=== PATIENT | male | born 1970 | race Caucasian/White ===

== ENCOUNTER 2020-10-23 06:45 | Outpatient (REF) | payer MEDICAID, OTHER, SELFPAY ==
[2020-10-23 07:17] LABS: MANUAL DIFF FLAG NO
[2020-10-23 07:27] LABS: Basophils Absolute Auto 0.1 X10*3/uL (0.0-0.2); Basophils Percent Auto 0.8 % (0-2); Eosinophils Absolute Auto 0.3 X10*3/uL (0.0-0.4); Eosinophils Percent Auto 3.6 % (0-4); Hematocrit 46.8 % (42-52); Hemoglobin 15.9 g/dl (14.0-18.0); Imm Gran Abs Auto 0.04 X10*3/uL (0.00-0.03); Imm Gran Pct Auto 0.5 % (0.0-0.4); Lymphocytes Absolute Auto 2.3 X10*3/uL (1.2-4.9); Lymphocytes Percent Auto 30.7 % (20-40); Mean Corpuscular Hemoglobin 29.7 pg (27.0-33.0); Mean Corpuscular Volume 87.3 fL (80-98); Mean Platelet Volume 12.1 fL (9.4-12.4); Monocytes Absolute Auto 0.8 X10*3/uL (0.1-1.2); Monocytes Percent Auto 10.2 % (2-11); Neutrophils Percent Auto 54.2 % (45-73); Platelet Count 201 X10*3/uL (160-400); Red Blood Count 5.36 X10*6/uL (4.60-5.80); White Blood Count 7.5 X10*3/uL (4.8-10.8)
[2020-10-23 07:53] LABS: Alanine Aminotransferase 31 U/L (0-40); Albumin Level 4.2 g/dL (3.5-5.0); Alkaline Phosphatase 72 U/L (39-117); Anion Gap 15 (12-20); Aspartate Amino Transferase 31 U/L (5-37); Bilirubin Total 0.5 mg/dL (0.0-1.0); Blood Urea Nitrogen 15 mg/dL (9-16); Calcium 9.3 mg/dL (8.4-10.2); Carbon Dioxide 24 mmol/L (22-29); Chloride 106 mmol/L (96-108); Estimated Glomerular Filt Rate > 60; Glucose Fasting 95 mg/dL (60-99); Potassium 4.7 mmol/L (3.3-5.1); Sodium 140 mmol/L (135-145); Total Protein 7.8 g/dL (6.5-8.0)
== END 2020-10-23 06:46 | disposition home or self-care (01) ==
LOC: HO.LAB 06:45
PROVIDERS: Absent Provider Nurse Practitioner Primary Care; PCP Nurse Practitioner Primary Care; Visit Provider Nurse Practitioner Family
DX: E55.9 Vitamin D deficiency, unspecified (principal); E78.00 Pure hypercholesterolemia, unspecified; Z71.89 Other specified counseling
CPT/HCPCS: 36415; 80053; 82306; 85025

== ENCOUNTER 2022-03-04 20:05 | Emergency (ER) | payer MEDICAID, OTHER, SELFPAY ==
[2022-03-04 20:13] VITALS: BP 175/103; PULSE 64; RESP 18; TEMP 37; O2SAT 98; BMI 28.2
[2022-03-04 21:09] VITALS: BP 128/91; PULSE 56; RESP 18; O2SAT 98
--- NOTE | 2022-03-04 21:36 | ED_ITS ---
HPI - Skin/Abscess/Foreign Bdy General Chief complaint: Skin/Abscess/Foreign Body Stated complaint: Rash Time Seen by Provider: 03/04/22 21:23 Source: patient Mode of arrival: ambulatory History of Present Illness HPI narrative: This is a 52-year-old male with history hypertension who states she began having what he describes as a rash that started around his bilateral lower extremities approximately 1 week ago and began after he had taken a shower but states that it is ?all over?, pruritic in nature and much worse after showering or just before going to sleep. He denies any associated fevers, chills, new soap/lotions/sheets/clothing/medications/foods/mattresses and denies any exposure to poison michel which he states he does not react to regardless. This rash involves every aspect of his body with the exception of palms and soles. Related Data Previous Rx's Medication Instructions Recorded prednisone 5 mg tablet 5 mg PO DAILY #4 tabs 03/04/22 Allergies Allergy/AdvReac Type Severity Reaction Status Date / Time No Known Allergies Allergy Unknown NOT Unverified 05/14/20 16:50 APPLICABLE Review of Systems Review of Systems: Pertinent positives and negatives as stated in HPI 10 point review of systems is otherwise negative. PMFSH Past Medical History Source: nursing notes reviewed Social History Social History Advance Directives: No Physical Exam Vital Signs: Vital Signs: Last Vital Signs Temp 98.6 F 03/04/22 20:13 Pulse 56 03/04/22 21:09 Resp 18 03/04/22 21:09 BP 128/91 H 03/04/22 21:09 Pulse Ox 98 03/04/22 21:09 O2 Del Method 03/04/22 21:09 BMI result Body Mass Index 28.2 VITAL SIGNS: Reviewed. GENERAL: Well developed, well nourished, in no acute distress. HEAD: Normocephalic/atraumatic EYES: PERRLA, EOMI EARS: Ext canals without abnormality, TMs non-bulging and non-erythematous NOSE: Nares patent bilateral OROPHARYNX: no oral lesions noted, posterior pharynx clear NECK: Supple, no adenopathy LUNGS: Normal breath sounds. No adventitious sounds or accessory muscle use. SpO2<98> CARDIOVASCULAR: Regular rate and rhythm without noted murmurs, no JVD or lower extremity edema. ABDOMEN: Soft, non-tender, non-distended with bowel sounds. MUSCULOSKELETAL: No tenderness, deformities, or effusions noted on gross inspection. EXTREMITIES: No cyanosis, clubbing or edema. SKIN: Inspection of the skin reveals papular, non erythematous skin changes with obvious stigmata of scratching to all extremities, trunk NEUROLOGIC: Alert and oriented x 4. Strength and sensation to light touch were grossly intact x 4. Course Course Course Narrative: 52-year-old male with history and clinical presentation concerning for possible liver versus hematologic etiology due to the association with showering for his presentation is this does not appear to be a typical urticaria, contact dermatit is, insect bites, and does not appear to be associated with any topical or medication related reaction. Will obtain initial antibiotics. Patient has attempted to use both Benadryl as well as topical cortisone without success. Review of all investigations does not demonstrate an elevated H/H, no evidence liver enzyme derangements, patient will be placed on a short course low-dose prednisone. All results discussed with him at bedside and he was strictly instructed to follow-up with his primary care provider by calling the office on Monday morning as he may need further workup. He was also advised the steroids can lead to elevated blood pressure. MDM - Skin/Abscess/Foreign Bdy Lab Data Result diagrams: 03/04/22 21:34 03/04/22 21:34 Labs: Lab Results 03/04/22 03/04/22 03/04/22 Range/Units 21:33 21:34 21:34 WBC 8.8 (4.8-10.8) X10*3/uL RBC 5.15 (4.60-5.80) X10*6/uL Hgb 15.1 (14.0-18.0) g/dl Hct 44.7 (42.0-52.0) % MCV 86.8 (80.0-98.0) fL MCH 29.3 (27.0-33.0) pg MCHC 33.8 (31.0-36.0) g/dl RDW 13.2 (11.0-16.0) % Plt Count 245 (160-400) X10*3/uL MPV 10.5 (9.4-12.4) fL Immature Gran % (Auto) 0.3 (0.0-0.4) % Neut % (Auto) 53.0 (45-73) % Lymph % (Auto) 31.8 (20-40) % [place] % (Auto) 12.0 H (2-11) % Eos % (Auto) 2.4 (0-4) % Baso % (Auto) 0.5 (0-2) % Lymph # (Auto) 2.8 (1.2-4.9) X10*3/uL [place] # (Auto) 1.1 (0.1-1.2) X10*3/uL Eos # (Auto) 0.2 (0.0-0.4) X10*3/uL Baso # (Auto) 0.0 (0.0-0.2) X10*3/uL Abs Immat Gran (auto) 0.03 (0.00-0.03) X10*3/uL Absolute Neuts (auto) 4.7 (2.0-8.3) x10*3/uL Absolute Nucleated RBC 0.000 (0.0-0.012) X10*3/uL Nucleated RBC % (auto) 0.0 (0.0-0.2) /100WBC Sodium 139 (135-145) mmol/L Potassium 4.3 (3.3-5.1) mmol/L Chloride 104 (96-108) mmol/L Carbon Dioxide 28 (22-29) mmol/L Anion Gap 11 L (12-20) BUN 14 (9-16) mg/dL Creatinine 1.01 (0.5-1.4) mg/dL Estim Creat Clear Calc 80.0 Estimated GFR > 60 Random Glucose 85 (60-115) mg/dL Calcium 9.3 (8.4-10.2) mg/dL Total Bilirubin 0.3 (0.0-1.0) mg/dL AST 26 (5-37) U/L ALT 30 (0-40) U/L Alkaline Phosphatase 74 (39-117) U/L Total Protein 7.5 (6.5-8.0) g/dL Albumin 4.3 (3.5-5.0) g/dL Urine Color YELLOW Urine Appearance CLEAR Urine pH 6.0 (5.0-8.0) Ur Specific [place] 1.010 (1.005-1.025) Urine Protein NEG (NEG-TRACE) MG/DL Urine Glucose (UA) NEG (NEG) MG/DL Urine Ketones NEG (NEG) MG/DL Urine Blood NEG (NEG) Urine Nitrite NEG (NEG) Ur Leukocyte Esterase NEG (NEG) Discharge Plan Discharge Clinical Impression: Pruritus, Generalized papular rash Patient Disposition: Home, Self-Care Instructions: Acute Rash (ED), Itchy Skin (ED) Additional Instructions: 1. Resume all home medications as prescribed. 2. Complete the course of medication that you have been prescribed in the emergency room. 3. Call your primary care provider on Monday morning as you will need re- evaluation and possibly further outpatient workup. Return to the ER for worsening symptoms. Prescriptions: New prednisone 5 mg tablet 5 mg PO DAILY Qty: 4 0RF Referrals: [facility] [Primary Care Provider] -
[2022-03-04 21:38] LABS: MANUAL DIFF FLAG NO
[2022-03-04 21:40] LABS: Basophils Percent Auto 0.5 % (0-2); Eosinophils Absolute Auto 0.2 X10*3/uL (0.0-0.4); Eosinophils Percent Auto 2.4 % (0-4); Hematocrit 44.7 % (42.0-52.0); Hemoglobin 15.1 g/dl (14.0-18.0); Imm Gran Abs Auto 0.03 X10*3/uL (0.00-0.03); Imm Gran Pct Auto 0.3 % (0.0-0.4); Lymphocytes Absolute Auto 2.8 X10*3/uL (1.2-4.9); Lymphocytes Percent Auto 31.8 % (20-40); Mean Corpuscular HGB Conc 33.8 g/dl (31.0-36.0); Mean Corpuscular Hemoglobin 29.3 pg (27.0-33.0); Mean Corpuscular Volume 86.8 fL (80.0-98.0); Mean Platelet Volume 10.5 fL (9.4-12.4); Monocytes Absolute Auto 1.1 X10*3/uL (0.1-1.2); Neutrophils Absolute Auto 4.7 x10*3/uL (2.0-8.3); Platelet Count 245 X10*3/uL (160-400); Red Blood Count 5.15 X10*6/uL (4.60-5.80); Red Cell Distribution Width 13.2 % (11.0-16.0); White Blood Count 8.8 X10*3/uL (4.8-10.8)
[2022-03-04 21:42] LABS: Appearance Urine CLEAR; Color Urine YELLOW; Glucose Urine UA NEG (NEG); Leukocyte Esterase Urine NEG (NEG); Nitrite Urine NEG (NEG); Urine Blood NEG (NEG); Urine Ketones NEG (NEG); Urine Protein NEG (NEG-TRACE)
[2022-03-04 22:07] LABS: Alanine Aminotransferase 30 U/L (0-40); Albumin Level 4.3 g/dL (3.5-5.0); Alkaline Phosphatase 74 U/L (39-117); Anion Gap 11 (12-20); Aspartate Amino Transferase 26 U/L (5-37); Bilirubin Total 0.3 mg/dL (0.0-1.0); Blood Urea Nitrogen 14 mg/dL (9-16); Calcium 9.3 mg/dL (8.4-10.2); Carbon Dioxide 28 mmol/L (22-29); Chloride 104 mmol/L (96-108); Estimated Glomerular Filt Rate > 60; Glucose Random 85 mg/dL (60-115); Potassium 4.3 mmol/L (3.3-5.1); Sodium 139 mmol/L (135-145); Total Protein 7.5 g/dL (6.5-8.0)
[2022-03-04] MEDS: predniSONE 10 MG TABLET PO (22:38)
== END 2022-03-04 22:41 | disposition home or self-care (01) ==
PROVIDERS: Emergency Provider Student in an Organized Health Care Education/Training Program
DX: L29.9 Pruritus, unspecified (principal); R21 Rash and other nonspecific skin eruption
CPT/HCPCS: 36415; 80053; 81003; 85025; 99283

== ENCOUNTER 2022-08-11 10:40 | Emergency (ER) | payer MEDICAID, OTHER, SELFPAY ==
--- NOTE | ~2022-08-11 | US_ITS ---
EXAMINATION: US ABDOMEN COMPLETE CLINICAL INFORMATION: Epigastric and upper abdominal pain radiating to back for 2 weeks. COMPARISON: CT abdomen and pelvis noncontrast 11/06/2015, CT abdomen and pelvis with contrast 08/27/2008 TECHNIQUE: Real-time imaging of the abdominal viscera. FINDINGS: PANCREAS: Normal in size and contour and echogenicity. No pancreatic ductal dilatation or retroperitoneal effusion. ABDOMINAL AORTA: The proximal, mid, and distal segments are normal in caliber. INFERIOR VENA CAVA: Visualized portions are normal. LIVER: Normal in size and smooth in contour. No intrahepatic biliary ductal dilatation. Parenchymal echogenicity is within normal. Color Doppler shows portal flow towards the liver. There is a simple cyst medial left lobe subcapsular measuring just under 1 cm. In addition, there is a homogeneous circumscribed geographic hyperechoic lesion anterior right lobe measuring 1.6 x 1.3 cm, likely hemangioma. Hemangioma also suggested on CT abdomen 2007, approximately 1 cm at that time. GALLBLADDER: Normal. The gallbladder is physiologically distended without evidence of stones, sludge, polyps, wall thickening or pericholecystic fluid. COMMON BILE DUCT: Normal in caliber measuring 0.4 cm in diameter. RIGHT KIDNEY: Normal. No hydronephrosis. No renal calculi or focal parenchymal lesions. The kidney measures 10.0 cm in maximum dimension. LEFT KIDNEY: Normal. No hydronephrosis. No renal calculi or focal parenchymal lesions. The kidney measures 10.9 cm in maximum dimension. SPLEEN: Normal. The spleen measures 8.3 cm in maximum dimension. FREE FLUID: None. US/US abdomen complete IMPRESSION: 1. No cholelithiasis or biliary ductal dilatation. Normal pancreas. 2. No hydronephrosis or visible calculi. 3. Probable hepatic hemangioma anterior right lobe, 1.6 cm.
--- NOTE | ~2022-08-11 | XR_ITS ---
EXAMINATION: XR CHEST CLINICAL INFORMATION: Chest pain COMPARISON: November 2017 TECHNIQUE: Frontal view of the chest was obtained. 1120 hours. FINDINGS: No significant abnormality is noted involving the heart, lungs, mediastinum, bony thorax or soft tissues. XR/XR chest 1V IMPRESSION: Unremarkable examination.
--- NOTE | 2022-08-11 10:54 | ECG_ITS ---
Test Reason : CHEST PAIN Blood Pressure : / mmHG Vent. Rate : 065 BPM Atrial Rate : 065 BPM P-R Int : 144 ms QRS Dur : 092 ms QT Int : 390 ms P-R-T Axes : 060 036 029 degrees QTc Int : 405 ms Normal sinus rhythm Normal ECG When compared with ECG of 11-AUG-2022 10:56, No significant change was found Referred By: Generic ED Physician Electronically Signed By:CECIL ROMO
--- NOTE | 2022-08-11 10:56 | ECG_ITS ---
Test Reason : chest pain Blood Pressure : / mmHG Vent. Rate : 068 BPM Atrial Rate : 068 BPM P-R Int : 152 ms QRS Dur : 092 ms QT Int : 380 ms P-R-T Axes : 073 036 027 degrees QTc Int : 404 ms Normal sinus rhythm with sinus arrhythmia Normal ECG When compared with ECG of 01-APR-2019 20:06, No significant change was found Referred By: Marilyn Alberts Electronically Signed By:CECIL ROMO
[2022-08-11 11:00] VITALS: BP 145/102; PULSE 69; RESP 17; TEMP 36.1; O2SAT 98; BMI 28.3
--- NOTE | 2022-08-11 11:36 | ED.GENADULT ---
HPI - General Adult General Chief complaint: General Medical <AMBROSE Wang - Last Filed: 08/11/22 12:01> Stated complaint: chest pain <AMBROSE Wang - Last Filed: 08/11/22 12:01> Time Seen by Provider: 08/11/22 11:51 <AMBROSE Wang - Last Filed: 08/11/22 12:01> Source: patient <Marilyn Alberts MD - Last Filed: 08/11/22 13:43> Mode of arrival: ambulatory <Marilyn Alberts MD - Last Filed: 08/11/22 13:43> History of Present Illness HPI narrative: 52-year-old male who states he is already on omeprazole presents with 2 weeks of worsening epigastric discomfort that he describes as sharp, improves with food consumption as well as ibuprofen but states that when he does eat he feels like he becomes very bloated he denies any associated fever, chills, nausea, vomiting, diarrhea. Patient also denies any chest pain/palpitations. <Marilyn Alberts MD - Last Filed: 08/11/22 13:43> Related Data Home medications: Previous Rx's Medication Instructions Recorded prednisone 5 mg tablet 5 mg PO DAILY #4 tabs 03/04/22 <AMBROSE Wang - Last Filed: 08/11/22 12:01> Allergies/adverse reactions: Allergies Allergy/AdvReac Type Severity Reaction Status Date / Time No Known Allergies Allergy Unknown NOT Unverified 05/14/20 16:50 APPLICABLE <AMBROSE Wang - Last Filed: 08/11/22 12:01> Review of Systems Review of Systems: Pertinent positives and negatives as stated in HPI 10 point review of systems is otherwise negative. <Marilyn Alberts MD - Last Filed: 08/11/22 13:43> PMFSH Past Medical History Source: nursing notes reviewed <Marilyn Alberts MD - Last Filed: 08/11/22 13:43> Social History Social History: Social History Advance Directives: Yes Advance Directives Information Provided: Yes Advance Directives on File: No <AMBROSE Wang - Last Filed: 08/11/22 12:01> Physical Exam ED Vital Signs: Vital Signs - 24 hr 08/11/22 11:00 Temperature 97.0 F Pulse Rate 69 Respiratory Rate 17 Blood Pressure 145/102 H Pulse Oximetry 98 Oxygen Delivery Method Room Air BMI result Body Mass Index 28.3 <AMBROSE Wang - Last Filed: 08/11/22 12:01> Vital Signs - 24 hr 08/11/22 11:00 Temperature 97.0 F Pulse Rate 69 Respiratory Rate 17 Blood Pressure 145/102 H Pulse Oximetry 98 Oxygen Delivery Method Room Air BMI result Body Mass Index 28.3 VITAL SIGNS: Reviewed. GENERAL: Well developed, well nourished, in no acute distress. HEAD: Normocephalic/atraumatic EYES: PERRLA, EOMI EARS: Ext canals without abnormality, TMs non-bulging and non-erythematous NOSE: Nares patent bilateral OROPHARYNX: no oral lesions noted, posterior pharynx clear and non-erythematous without noted tonsillar enlargement/erythema/exudates NECK: Supple, no adenopathy LUNGS: Normal breath sounds. No adventitious sounds or accessory muscle use. SpO2<98> CARDIOVASCULAR: Regular rate and rhythm without noted murmurs ABDOMEN: Soft, non-tender, non-distended with bowel sounds. MUSCULOSKELETAL: No tenderness, deformities, or effusions noted on gross inspection. EXTREMITIES: No cyanosis, clubbing or edema. SKIN: Inspection of the skin reveals no rashes NEUROLOGIC: Alert and oriented x 4. Strength and sensation to light touch were grossly intact x 4. <Marilyn Alberts MD - Last Filed: 08/11/22 13:43> Course Course Course Narrative: FARZANEH 11AM - 52yoM presenting to the ER with complaints of epigastric abdominal pain pain to his chest the past 2 weeks. Associated bloating. Reports multiple areas of body aches/joint pains. Plan: Labs, EKG, abdominal ultrasound, chest x-ray. Patient is stable he will be sent back to the waiting room for further evaluation treatment to the main ER. <AMBROSE Wang - Last Filed: 08/11/22 12:01> FARZANEH 11AM - 52yoM presenting to the ER with complaints of epigastric abdominal pain pain to his chest the past 2 weeks. Associated bloating. Reports multiple areas of body aches/joint pains. Plan: Labs, EKG, abdominal ultrasound, chest x-ray. Patient is stable he will be sent back to the waiting room for further evaluation treatment to the main ER. 52-year-old male with history and clinical presentation after review all investigations without evidence to suggest in the history or otherwise of cardiac ischemia, pneumonia or gallbladder disease. Lipase is also within normal limits and on clinical exam there is no epigastric pain on palpation arguing against the possibility of a pancreatitis. The distribution of the pain and timing is most consistent with a gastritis and possible ulcer formation, patient was instructed to stop taking ibuprofen and instead if he was experiencing pain to utilize Tylenol and/or Mylanta or Tums. Patient did tell me that he has a primary care provider appointment on September 05 and otherwise patient appears well. <Marilyn Alberts MD - Last Filed: 08/11/22 13:43> Medical Decision Making Lab Data Result Diagrams: : 08/11/22 11:33 08/11/22 11:33 <AMBROSE Wang - Last Filed: 08/11/22 12:01> Labs: Lab Results 08/11/22 08/11/22 08/11/22 Range/Units 11:16 11:16 11:33 WBC 7.4 (4.8-10.8) X10*3/uL RBC 5.34 (4.60-5.80) X10*6/uL Hgb 15.7 (14.0-18.0) g/dl Hct 46.2 (42.0-52.0) % MCV 86.5 (80.0-98.0) fL MCH 29.4 (27.0-33.0) pg MCHC 34.0 (31.0-36.0) g/dl RDW 12.8 (11.0-16.0) % Plt Count 265 (160-400) X10*3/uL MPV 10.9 (9.4-12.4) fL Immature Gran % (Auto) 0.3 (0.0-0.4) % Neut % (Auto) 62.1 (45-73) % Lymph % (Auto) 23.9 (20-40) % [place] % (Auto) 9.3 (2-11) % Eos % (Auto) 3.9 (0-4) % Baso % (Auto) 0.5 (0-2) % Lymph # (Auto) 1.8 (1.2-4.9) X10*3/uL [place] # (Auto) 0.7 (0.1-1.2) X10*3/uL Eos # (Auto) 0.3 (0.0-0.4) X10*3/uL Baso # (Auto) 0.0 (0.0-0.2) X10*3/uL Abs Immat Gran (auto) 0.02 (0.00-0.03) X10*3/uL Absolute Neuts (auto) 4.6 (2.0-8.3) x10*3/uL Absolute Nucleated RBC 0.000 (0.0-0.012) X10*3/uL Nucleated RBC % (auto) 0.0 (0.0-0.2) /100WBC Sodium (135-145) mmol/L Potassium (3.3-5.1) mmol/L Chloride (96-108) mmol/L Carbon Dioxide (22-29) mmol/L Anion Gap (12-20) BUN (9-16) mg/dL Creatinine (0.5-1.4) mg/dL Estim Creat Clear Calc Estimated GFR Random Glucose (60-115) mg/dL Calcium (8.4-10.2) mg/dL Magnesium (1.6-2.6) mg/dL Total Bilirubin (0.0-1.0) mg/dL Direct Bilirubin (0.0-0.5) mg/dL AST (5-37) U/L ALT (0-40) U/L Alkaline Phosphatase (39-117) U/L Troponin I High Sens (<3.5-35.0) ng/L Total Protein (6.5-8.0) g/dL Albumin (3.5-5.0) g/dL Lipase (8-78) U/L COVID-19 (SARATH) Negative (Negative) COVID-19 Clin Com See Note Influenza Type A ([facility]Z ELENA) Negative (Negative) Influenza Type B (LUZ ELENA) Negative (Negative) Influenza A & B Note See Note 08/11/22 08/11/22 08/11/22 Range/Units 11:33 11:33 11:33 WBC (4.8-10.8) X10*3/uL RBC (4.60-5.80) X10*6/uL Hgb (14.0-18.0) g/dl Hct (42.0-52.0) % MCV (80.0-98.0) fL MCH (27.0-33.0) pg MCHC (31.0-36.0) g/dl RDW (11.0-16.0) % Plt Count (160-400) X10*3/uL MPV (9.4-12.4) fL Immature Gran % (Auto) (0.0-0.4) % Neut % (Auto) (45-73) % Lymph % (Auto) (20-40) % [place] % (Auto) (2-11) % Eos % (Auto) (0-4) % Baso % (Auto) (0-2) % Lymph # (Auto) (1.2-4.9) X10*3/uL [place] # (Auto) (0.1-1.2) X10*3/uL Eos # (Auto) (0.0-0.4) X10*3/uL Baso # (Auto) (0.0-0.2) X10*3/uL Abs Immat Gran (auto) (0.00-0.03) X10*3/uL Absolute Neuts (auto) (2.0-8.3) x10*3/uL Absolute Nucleated RBC (0.0-0.012) X10*3/uL Nucleated RBC % (auto) (0.0-0.2) /100WBC Sodium 139 (135-145) mmol/L Potassium 4.1 (3.3-5.1) mmol/L Chloride 106 (96-108) mmol/L Carbon Dioxide 25 (22-29) mmol/L Anion Gap 12 (12-20) BUN 16 (9-16) mg/dL Creatinine 0.88 (0.5-1.4) mg/dL Estim Creat Clear Calc 91.9 Estimated GFR > 60 Random Glucose 111 (60-115) mg/dL Calcium 9.5 (8.4-10.2) mg/dL Magnesium 2.1 (1.6-2.6) mg/dL Total Bilirubin 0.5 (0.0-1.0) mg/dL Direct Bilirubin 0.2 (0.0-0.5) mg/dL AST 24 (5-37) U/L ALT 33 (0-40) U/L Alkaline Phosphatase 71 (39-117) U/L Troponin I High Sens < 3.5 (<3.5-35.0) ng/L Total Protein 7.3 (6.5-8.0) g/dL Albumin 4.2 (3.5-5.0) g/dL Lipase 35 (8-78) U/L COVID-19 (SARATH) (Negative) COVID-19 Clin Com Influenza Type A ([facility]Z ELENA) (Negative) Influenza Type B ([facility]Z [facility]LENA) (Negative) Influenza A & B Note <AMBROSE Wang - Last Filed: 08/11/22 12:01> Lab Results 08/11/22 08/11/22 08/11/22 Range/Units 11:16 11:16 11:33 WBC 7.4 (4.8-10.8) X10*3/uL RBC 5.34 (4.60-5.80) X10*6/uL Hgb 15.7 (14.0-18.0) g/dl Hct 46.2 (42.0-52.0) % MCV 86.5 (80.0-98.0) fL MCH 29.4 (27.0-33.0) pg MCHC 34.0 (31.0-36.0) g/dl RDW 12.8 (11.0-16.0) % Plt Count 265 (160-400) X10*3/uL MPV 10.9 (9.4-12.4) fL Immature Gran % (Auto) 0.3 (0.0-0.4) % Neut % (Auto) 62.1 (45-73) % Lymph % (Auto) 23.9 (20-40) % [place] % (Auto) 9.3 (2-11) % Eos % (Auto) 3.9 (0-4) % Baso % (Auto) 0.5 (0-2) % Lymph # (Auto) 1.8 (1.2-4.9) X10*3/uL [place] # (Auto) 0.7 (0.1-1.2) X10*3/uL Eos # (Auto) 0.3 (0.0-0.4) X10*3/uL Baso # (Auto) 0.0 (0.0-0.2) X10*3/uL Abs Immat Gran (auto) 0.02 (0.00-0.03) X10*3/uL Absolute Neuts (auto) 4.6 (2.0-8.3) x10*3/uL Absolute Nucleated RBC 0.000 (0.0-0.012) X10*3/uL Nucleated RBC % (auto) 0.0 (0.0-0.2) /100WBC Sodium (135-145) mmol/L Potassium (3.3-5.1) mmol/L Chloride (96-108) mmol/L Carbon Dioxide (22-29) mmol/L Anion Gap (12-20) BUN (9-16) mg/dL Creatinine (0.5-1.4) mg/dL Estim Creat Clear Calc Estimated GFR Random Glucose (60-115) mg/dL Calcium (8.4-10.2) mg/dL Magnesium (1.6-2.6) mg/dL Total Bilirubin (0.0-1.0) mg/dL Direct Bilirubin (0.0-0.5) mg/dL AST (5-37) U/L ALT (0-40) U/L Alkaline Phosphatase (39-117) U/L Troponin I High Sens (<3.5-35.0) ng/L Total Protein (6.5-8.0) g/dL Albumin (3.5-5.0) g/dL Lipase (8-78) U/L COVID-19 (SARATH) Negative (Negative) COVID-19 Clin Com See Note Influenza Type A ([facility]Z ELENA) Negative (Negative) Influenza Type B ([facility]Z ELENA) Negative (Negative) Influenza A & B Note See Note 08/11/22 08/11/22 08/11/22 Range/Units 11:33 11:33 11:33 WBC (4.8-10.8) X10*3/uL RBC (4.60-5.80) X10*6/uL Hgb (14.0-18.0) g/dl Hct (42.0-52.0) % MCV (80.0-98.0) fL MCH (27.0-33.0) pg MCHC (31.0-36.0) g/dl RDW (11.0-16.0) % Plt Count (160-400) X10*3/uL MPV (9.4-12.4) fL Immature Gran % (Auto) (0.0-0.4) % Neut % (Auto) (45-73) % Lymph % (Auto) (20-40) % [place] % (Auto) (2-11) % Eos % (Auto) (0-4) % Baso % (Auto) (0-2) % Lymph # (Auto) (1.2-4.9) X10*3/uL [place] # (Auto) (0.1-1.2) X10*3/uL Eos # (Auto) (0.0-0.4) X10*3/uL Baso # (Auto) (0.0-0.2) X10*3/uL Abs Immat Gran (auto) (0.00-0.03) X10*3/uL Absolute Neuts (auto) (2.0-8.3) x10*3/uL Absolute Nucleated RBC (0.0-0.012) X10*3/uL Nucleated RBC % (auto) (0.0-0.2) /100WBC Sodium 139 (135-145) mmol/L Potassium 4.1 (3.3-5.1) mmol/L Chloride 106 (96-108) mmol/L Carbon Dioxide 25 (22-29) mmol/L Anion Gap 12 (12-20) BUN 16 (9-16) mg/dL Creatinine 0.88 (0.5-1.4) mg/dL Estim Creat Clear Calc 91.9 Estimated GFR > 60 Random Glucose 111 (60-115) mg/dL Calcium 9.5 (8.4-10.2) mg/dL Magnesium 2.1 (1.6-2.6) mg/dL Total Bilirubin 0.5 (0.0-1.0) mg/dL Direct Bilirubin 0.2 (0.0-0.5) mg/dL AST 24 (5-37) U/L ALT 33 (0-40) U/L Alkaline Phosphatase 71 (39-117) U/L Troponin I High Sens < 3.5 (<3.5-35.0) ng/L Total Protein 7.3 (6.5-8.0) g/dL Albumin 4.2 (3.5-5.0) g/dL Lipase 35 (8-78) U/L COVID-19 ([facility]ARATH) (Negative) COVID-19 Clin Com Influenza Type A ([facility]Z ELENA) (Negative) Influenza Type B ([facility]Z ELENA) (Negative) Influenza A & B Note <Marilyn Alberts MD - Last Filed: 08/11/22 13:43> Independent Interpretation I performed an independent interpretation of an: EKG <Marilyn Alberts MD - Last Filed: 08/11/22 13:43> Interpretation: Normal sinus rhythm, HR-65, no STEMI, AR/QRS/QTC is within normal limits. <Marilyn Alberts MD - Last Filed: 08/11/22 13:43> Discharge Plan Discharge Clinical Impression: GERD (gastroesophageal reflux disease), Dyspepsia <AMBROSE Wang - Last Filed: 08/11/22 12:01> Patient Disposition: Home, Self-Care <AMBROSE Wang - Last Filed: 08/11/22 12:01> Instructions: Epigastric Pain (ED), Gastroesophageal Reflux Disease (ED), Diet for Stomach Ulcers and Gastritis (ED) <AMBROSE Wang - Last Filed: 08/11/22 12:01> Additional Instructions: 1. Resume all home medications as prescribed. To include omeprazole. 2. Recommend [id number] Tums/Mylanta for additional symptom relief. Avoid all ibuprofen/Motrin as this may be contributing to your symptoms. 3. Keep your appointment with your primary care provider and do not hesitate to return to the emergency room for any worsening of your symptoms. <AMBROSE Wang - Last Filed: 08/11/22 12:01> Prescriptions: No Action prednisone 5 mg tablet 5 mg PO DAILY Qty: 4 0RF <AMBROSE Wang - Last Filed: 08/11/22 12:01> Referrals: Radha John FNP [Primary Care Provider] - <AMBROSE Wang - Last Filed: 08/11/22 12:01>
[2022-08-11 11:44] LABS: MANUAL DIFF FLAG NO
[2022-08-11 11:47] LABS: COVID-19 Test Negative (Negative); IDNOW Serial# 16C4AD1C; IDNOW Serial# BCCEAD1C; Influenza A Negative (Negative); Influenza B2 Negative (Negative)
[2022-08-11 11:54] LABS: Basophils Percent Auto 0.5 % (0-2); Eosinophils Absolute Auto 0.3 X10*3/uL (0.0-0.4); Eosinophils Percent Auto 3.9 % (0-4); Hematocrit 46.2 % (42.0-52.0); Hemoglobin 15.7 g/dl (14.0-18.0); Imm Gran Abs Auto 0.02 X10*3/uL (0.00-0.03); Imm Gran Pct Auto 0.3 % (0.0-0.4); Lymphocytes Absolute Auto 1.8 X10*3/uL (1.2-4.9); Lymphocytes Percent Auto 23.9 % (20-40); Mean Corpuscular Hemoglobin 29.4 pg (27.0-33.0); Mean Corpuscular Volume 86.5 fL (80.0-98.0); Mean Platelet Volume 10.9 fL (9.4-12.4); Monocytes Absolute Auto 0.7 X10*3/uL (0.1-1.2); Monocytes Percent Auto 9.3 % (2-11); Neutrophils Absolute Auto 4.6 x10*3/uL (2.0-8.3); Neutrophils Percent Auto 62.1 % (45-73); Platelet Count 265 X10*3/uL (160-400); Red Blood Count 5.34 X10*6/uL (4.60-5.80); Red Cell Distribution Width 12.8 % (11.0-16.0); White Blood Count 7.4 X10*3/uL (4.8-10.8)
[2022-08-11 12:04] LABS: Anion Gap 12 (12-20); Blood Urea Nitrogen 16 mg/dL (9-16); Calcium 9.5 mg/dL (8.4-10.2); Carbon Dioxide 25 mmol/L (22-29); Chloride 106 mmol/L (96-108); Creatinine Clr Calc Pharmacy 91.9; Estimated Glomerular Filt Rate > 60; Glucose Random 111 mg/dL (60-115); Potassium 4.1 mmol/L (3.3-5.1); Sodium 139 mmol/L (135-145)
[2022-08-11 12:12] LABS: Troponin-I High Sensitivity < 3.5 ng/L (<3.5-35.0)
[2022-08-11 12:16] LABS: Alanine Aminotransferase 33 U/L (0-40); Albumin Level 4.2 g/dL (3.5-5.0); Alkaline Phosphatase 71 U/L (39-117); Aspartate Amino Transferase 24 U/L (5-37); Bilirubin Direct 0.2 mg/dL (0.0-0.5); Lipase 35 U/L (8-78); Magnesium 2.1 mg/dL (1.6-2.6); Total Protein 7.3 g/dL (6.5-8.0)
[2022-08-11 12:30] LABS: Bilirubin Total 0.5 mg/dL (0.0-1.0)
== END 2022-08-11 13:59 | disposition home or self-care (01) ==
PROVIDERS: Physician Assistant Medical; Emergency Provider Student in an Organized Health Care Education/Training Program; PCP Registered Nurse
DX: K21.9 Gastro-esophageal reflux disease without esophagitis (principal); R07.89 Other chest pain; R10.13 Epigastric pain; Z20.822 Contact with and (suspected) exposure to COVID-19; Z79.899 Other long term (current) drug therapy
CPT/HCPCS: 36415; 71045; 76700; 80048; 80076; 83690; 83735; 84484; 85025; 87502; 87635; 93005; 99284

== ENCOUNTER 2024-06-21 09:17 | Emergency (ER) | payer MEDICAID, OTHER, SELFPAY ==
[2024-06-21] VITALS (12 sets, daily range): BP systolic 111–144; BP diastolic 69–89; PULSE 51–67; RESP 15–21; TEMP 36.2–36.8; O2SAT 93–99; BMI 26.6
--- NOTE | ~2024-06-21 | XR_ITS ---
EXAMINATION: XR FOOT, LEFT XR TOE, LEFT CLINICAL INFORMATION: Postreduction. COMPARISON: Left foot radiographs done earlier the same day. TECHNIQUE: Portable PA views of the left foot and left great toe. FINDINGS: Redemonstration of an oblique, displaced fracture through the first proximal phalanx with slightly improved anatomic alignment. Lateral displacement now measures up to 0.4 cm. Surrounding soft tissue swelling is redemonstrated. XR/XR toe LT min 2V IMPRESSION: Redemonstration of an oblique, displaced fracture through the first proximal phalanx with slightly improved anatomic alignment. Electronically signed by: Fercho Valdez MD 06/21/2024 03:00 PM EDT
--- NOTE | ~2024-06-21 | XR_ITS ---
EXAMINATION: XR FOOT, LEFT CLINICAL INFORMATION: Status-post reduction of fracture of great toe. COMPARISON: Prior radiographs dated 06/21/2024. TECHNIQUE: AP, lateral, and oblique views of the left foot. FINDINGS: A transverse fracture is seen of the midshaft of the proximal phalanx of the left great toe. Again, the distal fracture fragment shows approximately one shaft width of anterior and medial displacement. There is slight interval improvement in overriding of fracture fragments. No dislocation is seen. There is generalized soft tissue swelling of the great toe, without gas or foreign body noted. XR/XR foot LT min 3V IMPRESSION: There is relatively stable alignment of a displaced fracture of the midshaft of the proximal phalanx of the left great toe following reduction attempt. Electronically signed by: Memo Mejias MD 06/21/2024 02:39 PM EDT
--- NOTE | ~2024-06-21 | XR_ITS ---
EXAMINATION: XR FOOT, LEFT XR TOE, LEFT CLINICAL INFORMATION: Postreduction. COMPARISON: Left foot radiographs done earlier the same day. TECHNIQUE: Portable PA views of the left foot and left great toe. FINDINGS: Redemonstration of an oblique, displaced fracture through the first proximal phalanx with slightly improved anatomic alignment. Lateral displacement now measures up to 0.4 cm. Surrounding soft tissue swelling is redemonstrated. XR/XR foot LT 2V IMPRESSION: Redemonstration of an oblique, displaced fracture through the first proximal phalanx with slightly improved anatomic alignment. Electronically signed by: Fercho Valdez MD 06/21/2024 03:00 PM EDT
--- NOTE | ~2024-06-21 | XR_ITS ---
EXAMINATION: XR FOOT, LEFT CLINICAL INFORMATION: Crush injury. COMPARISON: None available. TECHNIQUE: AP, lateral, and oblique views of the left foot. FINDINGS: Oblique, displaced fracture of the first proximal phalanx with lateral displacement of the distal fracture fragment measuring up to 1.0 cm in ML dimension. No extension of the fracture line to the articular surface. Circumferential soft tissue swelling. No radiopaque foreign body. No dislocation. No joint space narrowing or marginal osteophytes. No osseous erosion. No abnormal soft tissue calcification. XR/XR foot LT min 3V IMPRESSION: Medially displaced first proximal phalangeal fracture with circumferential soft tissue swelling. No extension to the articular surface. Electronically signed by: Fercho Valdez MD 06/21/2024 11:03 AM EDT
[2024-06-21] MEDS: oxyCODONE HCl Immed Release 5 MG TABLET PO (10:13)
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
[2024-06-21] MEDS: Lidocaine HCl 1 % MPF 5 ML VIAL 10 ML INFILTRATI (10:52)
[2024-06-21] MEDS: propofoL 200 MG/20 ML VIAL 140 MG IVPUSH (13:09)
--- NOTE | 2024-06-21 13:36 | PC.NURSE ---
Patient transferred from [facility] to ED 21 for conscious sedation to reduce left great toe. Respiratory, ED providers at bedside and consent obtained. VSS. Total of 100mg of propofol given during procedure
[2024-06-21] MEDS: Ketorolac Tromethamine 15 MG/ML VIAL IVPUSH (14:10)
[2024-06-21] MEDS: Morphine Sulfate Immed Release 15 MG TABLET PO (14:10)
--- NOTE | 2024-06-21 15:18 | PC.NURSE ---
Patient educated on crutch use, splint care, an pain management. aware of need to follow up with [facility]. Patient verbalized understanding
== END 2024-06-21 15:21 | disposition home or self-care (01) ==
PROVIDERS: Emergency Provider Emergency Medicine Emergency Medical Services; PCP Family Medicine
DX: S92.412A Displaced fracture of proximal phalanx of left great toe, initial encounter for closed fracture (principal); S90.112A Contusion of left great toe without damage to nail, initial encounter; M79.672 Pain in left foot; X58.XXXA Exposure to other specified factors, initial encounter; Y93.89 Activity, other specified; Y92.89 Other specified places as the place of occurrence of the external cause; Y99.8 Other external cause status
CPT/HCPCS: 28495; 29515; 73620; 73630; 73660; 96374; 96375; 99284; 99285; J1885; J2003; J2704

== ENCOUNTER 2024-08-05 16:12 | Outpatient (REF) | payer MEDICAID, OTHER, SELFPAY ==
[2024-08-05 18:10] LABS: Albumin Level 4.1 g/dL (3.5-5.0); Anion Gap 12 (12-20); Aspartate Amino Transferase 25 U/L (5-37); Bilirubin Total 0.3 mg/dL (0.0-1.0); Blood Urea Nitrogen 25 mg/dL (9-16); Calcium 9.9 mg/dL (8.4-10.2); Carbon Dioxide 25 mmol/L (22-29); Chloride 106 mmol/L (96-108); Cholesterol 188 mg/dL (<200); Estimated Glomerular Filt Rate > 60; Glucose Random 94 mg/dL (60-115); HDL Cholesterol 41 mg/dL (>40); LDL Cholesterol Calculated 95 mg/dL (<100); Potassium 4.1 mmol/L (3.3-5.1); Sodium 139 mmol/L (135-145); Total Protein 7.4 g/dL (6.5-8.0); Triglycerides 264 mg/dL (<150)
[2024-08-05 18:13] LABS: Alanine Aminotransferase 27 U/L (0-40); Alkaline Phosphatase 77 U/L (39-117)
[2024-08-05 18:15] LABS: Appearance Urine Clear; Color Urine Yellow; Glucose Urine UA Negative (Negative); Leukocyte Esterase Urine Negative (Negative); Nitrite Urine Negative (Negative); PH 5.5 (5.0-9.0); Specific Gravity - Urine 1.025 (1.005-1.025); Urine Blood Negative (Negative); Urine Ketones Negative (Negative); Urine Protein Negative (Neg-Trace)
[2024-08-05 18:19] LABS: Prostate Specific Antigen Scr 1.45 ng/mL (<0.05-4.0)
[2024-08-05 18:22] LABS: Bacteria Urine None Seen (None Seen); Hyaline Casts Urine 0-2 /LPF (0-2); RBC Urine 0-2 /HPF (0-2); Squamous Epithelial Cell Urine 0-2 /HPF (0-2); WBC Urine 0-5 /HPF (0-5)
[2024-08-05 18:55] LABS: Reflex LDLD? No
[2024-08-06 08:35] LABS: Estimated Average Glucose 114 mg/dL; Hemoglobin A1C 140.4856 umol/L; Hemoglobin A1c % 5.6 % (<6.0); Total Hemoglobin (HGBA1C) 3684.0393 umol/L
== END 2024-08-05 16:13 | disposition home or self-care (01) ==
LOC: HO.HHCL 16:12
PROVIDERS: Visit Provider Family Medicine
DX: Z12.5 Encounter for screening for malignant neoplasm of prostate (principal); K31.A0 Gastric intestinal metaplasia, unspecified; E78.00 Pure hypercholesterolemia, unspecified; M54.50 Low back pain, unspecified; G89.29 Other chronic pain; R39.9 Unspecified symptoms and signs involving the genitourinary system; R35.0 Frequency of micturition; R39.15 Urgency of urination; Z80.0 Family history of malignant neoplasm of digestive organs
CPT/HCPCS: 36415; 80053; 80061; 81001; 83036; 84153